=== PATIENT | female | born 1960 | race Caucasian/White ===

== ENCOUNTER 2016-12-11 12:25 | Emergency (ER) | payer BC ==
[~2016-12-11] VITALS: Ht 160 cm; Wt 80.9 kg
[2016-12-11 12:57] LABS: HEMATOCRIT 42.5 % (36.0-46.0); MCH 29.5 PG (29.0-34.0); MCHC 32.9 G/DL (30.0-36.0); MCV 89.5 FL (83-99); MEAN PLAT.VOLUME 10.1 uM^3 (9.5-12.4); PLATELET COUNT 248 K/uL (156-360); RBC DIS.WIDTH-CV 14.6 % (11.8-14.6); RBC DIS.WIDTH-SD 48.5 % (39-53); RED BLOOD COUNT 4.75 M/uL (3.80-5.20); WHITE BLOOD COUNT 7.2 K/uL (4.1-10.2)
[2016-12-11 13:10] LABS: CHLORIDE 110 mEq/L (99-109); POTASSIUM 4.4 mEq/L (3.7-5.4); SODIUM 140 mEq/L (136-147)
[2016-12-11 13:12] LABS: GLUCOSE 93 mg/dL (70-99)
[2016-12-11 13:13] LABS: ANION GAP 9 MEQ/L (2-14)
[2016-12-11 13:15] LABS: GFR ESTIMATE (CALCULATED) 49 mL/min/
[2016-12-11 13:16] LABS: UREA NITROGEN (BUN) 22 mg/dL (9-23)
[2016-12-11 13:32] LABS: ADD MIUA? YES; BILIRUBIN NEGATIVE; BLOOD SMALL; COLOR YELLOW ((YELLOW)); GLUCOSE (STRIP) NEGATIVE; KETONES NEGATIVE; LEUKOCYTES NEGATIVE; NITRITE NEGATIVE; PROTEIN (STRIP) NEGATIVE; SPECIFIC GRAVITY 1.015 (1.000-1.030); UROBILINOGEN 0.2 MG/DL (0.2-1.0)
[2016-12-11 13:40] LABS: BACTERIA RARE /HPF; EPITHELIAL CELLS RARE /HPF; MUCUS TRACE /LPF; UCUL ADDED? NO; WHITE BLOOD CELLS 0-5 /HPF (0-5)
[2016-12-11 15:01] LABS: TOTAL BILIRUBIN 0.2 mg/dL (0.0-1.0)
[2016-12-11 15:02] LABS: ALKALINE PHOSPHATASE 113 IU/L (3-129)
[2016-12-11 15:05] LABS: DIRECT BILIRUBIN 0.1 mg/dL (0.0-0.3)
[2016-12-11 15:06] LABS: LIPASE 18 U/L (1.0-51.0)
[2016-12-11] MEDS ORDERED: PERCOCET 5/31 TABLET PO (17:16)
[2016-12-11] MEDS ORDERED: FLOMAX0.4 MG PO (17:16)
[2016-12-11] MEDS ORDERED: ZOFRAN ODT4 MG PO (17:16)
[2016-12-11] MEDS ORDERED: MOTRIN600 MG PO (17:16)
[2016-12-11 17:54] VITALS: BP 143/91
== END 2016-12-11 17:55 | disposition home or self-care (01) ==
LOC: EME 12:25
DX: N13.2 Hydronephrosis with renal and ureteral calculous obstruction (principal); R31.9 Hematuria, unspecified
CPT/HCPCS: 74176; 80048; 80076; 81003; 83690; 85027; 99281; 99284; J1885; J3010; J7030